=== PATIENT | male | born 1935 | race American Indian/Alaskan Native ===

== ENCOUNTER 2021-02-02 14:36 | Inpatient (IN) | payer MEDICARE, OTHER ==
[~2021-02-02] VITALS: Ht 177.8 cm; Wt 98.2 kg
[~2021-02-02 14:36] MED LIST: ASPIR-TRIN325 MG PO; ASPIRIN EC325 MG PO; BLOOD PRESSURE; CLINDAMYCIN HC300 MG PO; INSULIN SYRING1 EA10 MISC; KEFLEX500 MG PO; LANTUS100 UNITS/ SUB-Q; LIPITOR10 MG PO; LIPITOR40 MG PO; LISINOPRIL20 MG PO; MECLIZINE HCL25 MG PO
[2021-02-02] MEDS ORDERED: VITAMIN D325 MC2 PO (15:06)
--- NOTE | 2021-02-02 18:47 | NUR ---
New admit to the medical floor. Patient alert to self and situation. LLE warm and red. Dinner to patient. Daughter at bedside. Patient oriented to room and call light.
--- NOTE | 2021-02-02 19:15 | NUR ---
SHIFT REPORT RECEIVED FROM [facility] GABI POWER. pt AWAKE AND RESTING IN BED, DENIES NEEDS OR CONCERNS. IV VANCO COMPLETE, IV SITE SALINE LOCKED. MAINTENANCE FLUIDS INFUSING DIRECTED AT 125MLS/HR, IV SITE WNL. LLE WARM TO THE TOUCH, STRONG PEDAL PULSE. DIFFUSE RUDDINESS IN COLOR, WILL MONITOR FOR CHANGES. CALL LIGHT IN REACH AND BED ALARM ON.
--- NOTE | 2021-02-02 22:30 | NUR ---
ASSESSMENT COMPLETE, SCHEDULED ACCUCHECK DONE, RESULT OF 205. INSULIN SS AND HS LONG ACTING INSULIN PROVIDED. REDDNESS TO LLE OUTLINED, REMAINS SAM[place] IN COLOR AND WARM TO THE TOUCH. VSS, pt AFEBRILE. pt DENIES PAIN AND NAUSEA. A/OX4, IMPULSIVE AND UNSTEADY ON FEET PER SHIFT REPORT. BED ALARM REMAINS ON FOR SAFETY. 100MLS DARK AND CONCENTRATED URINE NOTED, WILL CONTINUE TO MONITOR UO. IV SITE X2 WNL, BRISK BLOOD RETURN NOTED. IV FLUIDS INFUSING VIA RIGHT HAND IV SITE DIRECTED. NO FURTHER NEEDS, CALL LIGHT IN REACH.
--- NOTE | 2021-02-03 00:07 | NUR ---
SCHEDULED IV BAX INFUSING DIRECTED, IV SITE WNL. pt AWOKE TO VOICE, REPOSITIONED IN BED FOR COMFORT. PILLOW PLACED UNDER RIGHT SIDE. NO ADDITIONAL NEEDS VERBALIZED, CALL LIGHT IN REACH. BED ALARM ON FOR SAFETY.
--- NOTE | 2021-02-03 00:13 | NUR ---
PATIENT REPOSITIONED. WARM BLANKET PROVIDED.
--- NOTE | 2021-02-03 02:13 | NUR ---
pt INCONTINENT OF URINE, GIULIA CARE DONE AND DRY ATTENDS IN PLACE. pt ABLE TO REPOSITION SELF IN BED INDEPENDENTLY. VERY SCANT REDDNESS NOTED TO INNER BUTTOCKS AND UNDER SCROTUM AREA. WILL MONITOR. EASILY BLANCHABLE. VSS, pt AFEBRILE. ADDITIONAL 200MLS VOIDED AT THIS TIME. NEW BAG IV FLUIDS INFUSING DIRECTED. IV SITE X2 REMAIN WNL. PILLOW PLACED UNDER LEFT SIDE. NO FURTHER NEEDS, CALL LIGHT IN REACH. BED ALARM ON.
--- NOTE | 2021-02-03 02:15 | NUR ---
ASSISTED PRIMARY RN DALIA. CHANGED BED LINEN. PATIENT GOT UP ASSISTED BY RN USING URINAL. FRESH PULL UPS PLACED. PATIENT WAS ABLE TO SELF BOOST UP IN BED.
--- NOTE | 2021-02-03 03:42 | NUR ---
BED ALARM GOING OFF, pt REPORTS NEED TO VOID. INCONTINENT OF URINE PLUS 100MLS OUTPUT. GIULIA CARE DONE AND DRY ATTENDS ON. BED ALARM BACK ON, pt ABLE TO REPOSITION SELF IN BED INDEPENDENTLY. LLE REMAINS ELEVATED IN BED, REMAINS WITHIN OUTLINE. CALL LIGHT IN REACH.
--- NOTE | 2021-02-03 05:37 | NUR ---
VSS, pt AFEBRILE. IV SITE WNL, FLUIDS INFUSING DIRECTED. BED ALARM ON FOR SAFETY. ATTENDS DRY AT THIS TIME. NO ADDITIONAL NEEDS, CALL LIGHT IN REACH.
--- NOTE | 2021-02-03 06:53 | NUR ---
THIS RN SPOKE TO DR AHN REGARDING AM SODIUM RESULT- 155 FROM 138. TELEPHONE ORDERS READ BACK TO DC CURRENT IV MAINTAINANCE FLUIDS AND ENCOURAGE PO INTAKE OF WATER. pt SALINE LOCKED AT THIS TIME.
[2021-02-03] MEDS ORDERED: LISINOPRIL20 MG PO (07:34)
--- NOTE | 2021-02-03 07:57 | NUR ---
PT AWAKE IN ROOM. PT AMBULATED TO BATHROOM WITH FWW AND UP TO CHAIR. CALL LIGHT WITHIN REACH. WHITE BOARD UPDATED. WASH CLOTH GIVEN FOR FACE. PT AGREES TO SHOWER LATER TODAY. NO FURTHER NEEDS AT THIS TIME.
--- NOTE | 2021-02-03 09:20 | NUR ---
Spoke with Rocael. He plans on dc to home when cleared medically. He drives and shops for himself. Daughter and 4 children live in his home and would help if needed, he denies need for help. Pt denies having any needs. Pt denies any financial issues. Would like a walker and a shower chair. notified.
--- NOTE | 2021-02-03 10:20 | NUR ---
Physical therapy working with patient at this time.
--- NOTE | 2021-02-03 12:46 | NUR ---
Patient assisted to restroom then back to chair. Chair alarm placed. Patient denies pain and sob. Legs elevated. LLE appears to be less warm today, redness is unchanged and within previous markings, cms intact. Patient has no current needs. IV patent.
--- NOTE | 2021-02-03 12:49 | NUR ---
CONNECTED WITH PT TO SEE IF HE WOULD LIKE THE [employer] S[employer]ATB[employer] OPERATOR TO VISIT TODAY. PT DECLINED TODAY. WILL CONTINUE TO FOLLOW
--- NOTE | 2021-02-03 13:55 | NUR ---
Updated patient's family at bedside.
--- NOTE | 2021-02-03 14:04 | NUR ---
MED REC COMPLETED BY PHARMACY
--- NOTE | 2021-02-03 17:54 | NUR ---
Patient assisted to bathroom and back to chair. Patient denies pain. legs elevated in chair. Dinner to bedside. Patient visiting with daughter. No current needs. Call light within reach.
--- NOTE | 2021-02-03 19:35 | NUR ---
REPORT RECEIVED FROM GABI POWER. pt ASSITED FROM RESTROOM TO CHAIR SBA FWW. pt DENIES NEEDS. IV ANTIBIOTIC INFUSING WNL. CALL LIGHT IN REACH.
--- NOTE | 2021-02-03 20:27 | EKG ---
[facility] [address] [facility] [place] [address] Signed Sinus tachycardia with fusion complexes Left axis deviation Pulmonary disease pattern Inferior infarct , age undetermined Abnormal ECG No previous ECGs available Confirmed by BRISEIDA AHN MD ([id number]) on 02/03/2021 8:26:51 PM Electronically Signed By: BRISEIDA AHN MD 02/03/212026 PATIENT NAME: ANAHY GUTIERREZ Electrocardiogram DATE OF : 33 PHYSICIAN: BRISEIDA AHN MD REPORT #: [id number] REPORT IS CONFIDENTIAL AND NOT TO BE RELEASED WITHOUT AUTHORIZATION
--- NOTE | 2021-02-03 21:21 | NUR ---
SBA WITH FWW FROM RESTROOM TO BED. VSS. SCHEDULED MEDICATIONS ADMINISTERED. ASSESSMENT COMPLETE. pt RATES PAIN 3/10 IN LLE "IT DOESN'T HURT TOO BAD". LLE RED, HOT TO TOUCH. PRN TYLENOL ADMINISTERED. CALL LIGHT IN REACH. WATER PROVIDED. LIGHTS OFF IN ROOM.
--- NOTE | 2021-02-03 22:10 | NUR ---
CALL LIGHT ANSWERED. WARM BLANKET PROVIDED. TEMPERATURE IN ROOM ADJUSTED. NO ADDITIONAL REQUESTS. CALL LIGHT IN REACH.
--- NOTE | 2021-02-04 00:20 | NUR ---
pt SLEEPING, AWAKENS TO VOICE. IV SITE FLUSHED WNL. IV ANTIBIOTIC INFUSING ORDERED. TEMPERATURE ADJUSTED IN ROOM. ASSISTED TO LOWER HOB. CALL LIGHT IN REACH.
--- NOTE | 2021-02-04 02:09 | NUR ---
CALL LIGHT ANSWERED. SBA TO RESTROOM WITH FWW FOR VOID. pt USES BATHROOM CALL LIGHT WHEN FINISHED. RN ENTERS ROOM AND BLOOD NOTED ON DSOUZA, FLOOR, pt CLOTHING. IV SITE IN RIGHT HAND ACCIDENTLY PULLED BY pt. pt AND RESTROOM CLEANED UP. HOSPITAL SCRUB PANTS PROVIDED REQUESTED. pt BACK IN BED, ASSESSMENT COMPLETE. pt DENIES ANY PAIN. CALL LIGHT IN REACH.
--- NOTE | 2021-02-04 04:53 | NUR ---
CALL LIGHT ANSWERED. pt ASSISTED TO RESTROOM WITH FWW, SBA FOR VOID. ATTENDS CHANGED, SMALL AMT DRIBBLING. BACK IN BED. VSS. IV ANTIBIOTIC INFUSING WNL. CALL LIGHT IN REACH.
--- NOTE | 2021-02-04 08:39 | NUR ---
IN TO CHECK ON PT. PT SITTING UP IN RECLINER FACING WINDOW EATING BREAKFAST. PT ALERT AND ORIENTED. AM MEDICATIONS DUE. PT REPORTS PAIN 3/10 TO LLE, PRN APAP GIVEN PER ORDER. PT PLEASANT AND CPOOPERAITVE WITH STAFF. IV ASSESSED BY GABI POWER FLUSHING WELL, WITH BLOOD RETURN. NO S/SX OF PHELIBITIS OR INFILTRATION AT THIS TIME. NO OTHER CONCERNS OR REQUESTS AT THIS TIME.
--- NOTE | 2021-02-04 11:02 | NUR ---
IN TO CHECK ON PT, PT SITTING UP IN RECLINER LOOKING OUT THE WIND. PATIENT DENIES PAIN AT THIS TIME. DR. AHN IN TO ROUND ON PT. FRESH ICE WATER PROVIDED PER PT REQUEST. PT REPORTS HE WORKED WITH PT THIS AM "I FEEL MUCH BETTER NOW." NO OTHER CONCERS OR REQUESTS AT THIS. CALL LIGHT IN REACH.
--- NOTE | 2021-02-04 12:26 | NUR ---
IN TO CHECK ON PT. PT LUCN AT CHAIRSIDE. INSULIN ADMINISTERED PER ORDER. PT DENIES PAIN. PLEASANT WITH STAFF. NO OTHER CONCOERNS OR RREQUESTS AT THHIS TIME. CALL LIGHT IN REACH.
--- NOTE | 2021-02-04 15:08 | NUR ---
IN TO CHECK ON PT. PT SITTING UP IN CHAIR LOOKING OUT THE WINDOW. ASSESMSENT DUE. PT DENIES PAIN AT THIS TIME. PT ALERT AND ORIENTED TO BASELINE. NO OTHER CONERS OR REQUETS AT THIS TIME. CALL LIGHT IN REACH.
--- NOTE | 2021-02-04 15:14 | NUR ---
No change in plan. Called [employer] as walker and shower chair have not been delivered. Onna states faxes and phones have been down due to wind since yesterday. Refaxed chart and called to confirm they received. Will deliver tomorrow. Reminded Onna they need to also check with [employer] as they will cover anything Medicare doesn't.
--- NOTE | 2021-02-04 15:25 | NUR ---
LAB IN TO [facility]
--- NOTE | 2021-02-04 17:39 | NUR ---
PT CONTINUES TO SHOW IMPROVEMENTS. PT IS ALERT AND OREITNED PER BASELINE. PT WORKING WITH PHYSICAL THERAPY. CONTINUES WITH IV ABX AT THIS TIME. VSS. BLOOD SUGARS REMAIN STABLE DURING SHIFT.
--- NOTE | 2021-02-04 19:40 | NUR ---
SBA TO THE BATHROOM. PATIENT IS BACK IN CHAIR. CALL LIGHT WITHIN REACH. NO OTHER NEEDS AT THIS TIME.
--- NOTE | 2021-02-04 19:43 | NUR ---
RECEIVED REPORT FROM DAY SHIFT RN. PATIENT IS UP IN RECLINER VISITING WITH DAUGHTER. PATIENT AND DAUGHTER DENY ANY NEEDS. UPDATED DAUGHTER ON PLAN OF CARE AND ALL QUESTIONS ANSWERED. PT UP TO BATHROOM WITH CLINICAL ADMINISTRATIVE COORDINATOR. DAUGHTER HAS LEFT FOR THE EVENING.
--- NOTE | 2021-02-04 20:00 | NUR ---
BLOOD SUGAR CHECK DONE. V/S AND I&O'S DONE AND RECORDED. PATIENT STILL UP IN THE CHAIR. CALL LIGHT AND SIDE TABLE WITHIN REACH.
--- NOTE | 2021-02-04 20:43 | NUR ---
PATIENT ASSESMENT COMPLETED. PATIENT IS UP TO RECLINER. PATIENT DENIES ANY PAIN. VITALS TAKEN AND RECORDED. INTAKE AND OUTPUT RECORDED. PATIENTS SCHEEDULED MEDICATIONS GIVEN PER ORDER. PATIENTS IV ABX COMPLETED AND PATIENT IS NOW SL. PATIENT DENIES ANY FURTHER NEEDS. CALL LIGHT IN REACH.
--- NOTE | 2021-02-04 22:00 | NUR ---
PATIENT USED THE BATHROOM THEN WENT TO BED. CALL LIGHT WITHIN REACH.
--- NOTE | 2021-02-04 22:54 | NUR ---
PATIENT IS RESTING IN BED WATCHING TV. PATIENT DENIES ANY NEEDS. CALL LIGHT IN REACH.
--- NOTE | 2021-02-05 00:11 | NUR ---
PATIENT IS RESTING IN BED. NEW IVS STARTED. LEFT A/C IV DC'D AND REDNESS AND SWELLING NOTED AROUND DC'D IV SITE. PATIENT TOLERATED ACTIVITY WELL. IV ABX INFUSING PER ORDER. PATIENT DENIES ANY NEEDS. PATIENT DENIES ANY PAIN. CALL LIGHT IN REACH.
--- NOTE | 2021-02-05 00:30 | NUR ---
PATIENT CALLED TO USE THE RESTROOM. SBA. PATIENT IS BACK IN BED. NO OTHER NEED AT THIS TIME.
--- NOTE | 2021-02-05 01:59 | NUR ---
PATIENTS HEAT ADJUSTED PER REQUEST. ABX INFUSING PER ORDER. PATIENT DENIES ANY FURTHER NEEDS. CALL LIGHT IN REACH.
--- NOTE | 2021-02-05 02:43 | NUR ---
CALL LIGHT ANSWERED. SBA TO THE BATHROOM AND BACK TO BED. NO OTHER NEEDS AT THIS TIME.
--- NOTE | 2021-02-05 03:07 | NUR ---
PATIENT IS RESTING IN BED WITH EYES CLSOED, RR 17. CALL LIGHT IN REACH.
--- NOTE | 2021-02-05 04:05 | NUR ---
ABX COMPLETED INFUSING. PATIENT SI NOW SL PER ORDER. PATIENT DENIES ANY NEEDS. CALL LIGHT IN REACH.
--- NOTE | 2021-02-05 05:13 | NUR ---
PATIENT ASSISTED TO THE RESTROOM A SBA. PATIENT WAS ABLE TO VOID. VITALS TAKEN AND RECORDED. INTAKE AND OUTPUT RECORDED. PATIENT DENIES ANY PAIN. PATIENTS BLOOD DRAWN AND SENT TO THE LAB. PATIENT DENIES ANY FURTHER NEEDS. CALL LIGHT IN REACH.
--- NOTE | 2021-02-05 06:01 | NUR ---
PATIENT IS RESTING IN BED WITH EYES CLSOED, RR 15. CALL LIGHT IN REACH.
--- NOTE | 2021-02-05 07:25 | NUR ---
this rn received report from tomeka michel. pt awake and needing to go to the restroom. pt then up to chair. call light within reach.
--- NOTE | 2021-02-05 07:50 | NUR ---
this rn in pts room to give pt his morning meds. pt stated he is doing well. pts chair moved so pt can look out window. antibiotic started and call light within reach. no other needs noted at this time.
--- NOTE | 2021-02-05 09:30 | NUR ---
this rn in pts room to start pts next antibiotic. pt still up to chair at this time and is enjoying being faced to the window. this rn to inspect pts left leg where cellulitis was- this rn noted that the reddness and swelling has receeded from the orgianl line that was drawn on his leg. this rn did noted what appears to be hemosiderin staining on his left lower leg. pt denies pain in this leg at this time.
--- NOTE | 2021-02-05 10:20 | NUR ---
Spoke briefly to Rocael while he is walking in the shell with PT. Updated his walker is on the way from [facility].
[2021-02-05] MEDS ORDERED: CLINDAMYCIN HC300 MG PO (11:12)
--- NOTE | 2021-02-05 12:20 | NUR ---
THIS RN IN PTS ROOM TO GIVE PT INSULIN. PT IN CHAIR AND STATES THAT HE NEEDS NOTHING ELSE AT THIS TIME. CALL LIGHT WITHIN REACH
--- NOTE | 2021-02-05 14:30 | NUR ---
Patient is sitting in chair with call light in reach. Tray is being taken out of room.
--- NOTE | 2021-02-05 15:00 | NUR ---
Pt plans on dc today at 5pm. [facility] arrived with walker and shower chair. Pt denies further needs.
== END 2021-02-05 18:00 | disposition home health service (06) | DRG 872 ==
LOC: ED 14:36 → MS 17:23
PROVIDERS: ADMIT Internal Medicine; ATTEND Internal Medicine
DX: A40.9 Streptococcal sepsis, unspecified (principal); L03.116 Cellulitis of left lower limb; R42 Dizziness and giddiness; I10 Essential (primary) hypertension; Z20.822 Contact with and (suspected) exposure to COVID-19; H91.90 Unspecified hearing loss, unspecified ear; R26.89 Other abnormalities of gait and mobility; E11.9 Type 2 diabetes mellitus without complications; Z90.49 Acquired absence of other specified parts of digestive tract; I69.398 Other sequelae of cerebral infarction; Z79.4 Long term (current) use of insulin; Z79.82 Long term (current) use of aspirin; Z79.899 Other long term (current) drug therapy; Z88.2 Allergy status to sulfonamides; Z91.81 History of falling
CPT/HCPCS: 80048; 80053; 80202; 83605; 83735; 84484; 85025; 93005; 93010; 97110; 97116; 97162; A9270; C9803; J0692; J1815; J3370; J7030; J7060; U0003